=== PATIENT | male | born 1970 | race Caucasian/White ===

== ENCOUNTER 2018-03-10 14:44 | Emergency (ER) | payer SELFPAY ==
[~2018-03-10] VITALS: Ht 175.3 cm; Wt 140.9 kg
[2018-03-10 15:37] VITALS: Ht 175.3 cm; Wt 140.9 kg
[2018-03-10] MEDS ORDERED: ZYLOPRIM300 MG PO (15:39)
[2018-03-10] MEDS ORDERED: ENTRESTO 24 MG1 EACH PO (15:39)
[2018-03-10] MEDS ORDERED: GLUCOPHAGE500 MG PO (15:39)
[2018-03-10] MEDS ORDERED: NOVOLOG100 U/M1 SC (15:40)
[2018-03-10] MEDS ORDERED: LASIX40 MG PO (15:40)
[2018-03-10] MEDS ORDERED: NEURONTIN 300300 MG PO (15:40)
[2018-03-10] MEDS ORDERED: LANTUS INSULIN10 ML SC (15:41)
[2018-03-10] MEDS ORDERED: COREG12.5 MG PO (15:42)
[2018-03-10] MEDS ORDERED: TORADOL10 MG PO (19:52)
[2018-03-10 20:04] VITALS: BP 135/85
== END 2018-03-10 20:05 | disposition home or self-care (01) ==
LOC: D.ER 14:44
DX: R07.81 Pleurodynia (principal); E11.9 Type 2 diabetes mellitus without complications; I10 Essential (primary) hypertension; I50.9 Heart failure, unspecified

== ENCOUNTER 2020-12-24 07:16 | Day surgery (SDC) | payer OTHER ==
--- NOTE | 2020-12-23 13:25 | NUR ---
CONFIRMED PT APPT FOR 12/24/20 PT VERBALIZED UNDERSTANDING OF NPO AFTER MIDNIGHT, ONLY SIP OF WATER WITH MORNING MEDS PT CONFIRMED LICENSED MORTICIAN PT CONFIRMED ASA NOT TAKEN IN 5 DAYS PT CONFIRMED ARRIVAL TIME OF 0730
[~2020-12-24] VITALS: Ht 177.8 cm; Wt 129.1 kg
[~2020-12-24 07:16] MED LIST: COREG12.5 MG PO; ENTRESTO 24 MG1 EACH PO; GLUCOPHAGE500 MG PO; LANTUS INSULIN10 ML SC; LASIX40 MG PO; NEURONTIN 300300 MG PO; NOVOLOG100 U/M1 SC; TORADOL10 MG PO; ZYLOPRIM300 MG PO
[2020-12-24] MEDS ORDERED: BAYER CHEWABLE81 MG (08:11)
[2020-12-24] MEDS ORDERED: BETAPACE 80 MG80 MG (08:13)
[2020-12-24] MEDS ORDERED: LOPRESSOR25 MG (08:14)
[2020-12-24] MEDS ORDERED: ALDACTONE25 MG (08:15)
[2020-12-24] MEDS ORDERED: PROTONIX40 MG PO (08:15)
[2020-12-24] MEDS ORDERED: VITAMIN D-40010 MCG (08:16)
[2020-12-24] MEDS ORDERED: FOLIC ACID1 MG (08:17)
[2020-12-24] MEDS ORDERED: CLARITHROMYCIN500 M1 (08:18)
[2020-12-24 08:20] VITALS: BP 166/83; Ht 177.8 cm; Wt 129.1 kg
[2020-12-24 08:20] LABS: APTT 29.4 SECONDS (22.8-39.4); INR 1.2 (0.85-1.17); PROTIME 14.1 SECONDS (11.6-15.0)
[2020-12-24 08:23] LABS: CARBON DIOXIDE 32.3 mmol/L (21.0-32.0); CREATININE - SERUM 2.8 mg/dL (0.6-1.3)
[2020-12-24 08:33] LABS: ANION GAP 8.5 mmol/L (8-16); POTASSIUM - SERUM 2.8 mmol/L (3.5-5.1)
[2020-12-24 08:49] LABS: HEMATOCRIT 34.8 % (42.0-54.0); LYMPHOCYTE ABS# 0.77 10x3/uL (1.32-3.57); MCH 25.5 pg (26.0-34.0); MCHC 31.6 g/dL (31.0-37.0); MCV 80.6 fL (80.0-100.0); MEAN PLATELET VOLUME 12.1 fL (7.4-10.4); PLATELET COUNT 178 10x3/uL (130-400); RBC 4.32 10x6/uL (4.20-6.10); RDW 15.9 % (11.5-14.5); WBC 5.7 10x3/uL (4.8-10.8)
--- NOTE | 2020-12-24 13:18 | NUR ---
1315 ADA FINGER FOOD DIET SERVED. AT SIDE.
[2020-12-24 13:30] LABS: EOSINOPHILS 4 % (0-7); LYMPHOCYTES 21 % (15-50); MONOCYTES 13 % (2-11); NEUTROPHILS 62 % (40-80); PLATELET ESTIMATE NORMAL
== END 2020-12-24 15:35 | disposition home or self-care (01) ==
LOC: D.CT 07:16
PROVIDERS: General Practice; ATTEND Internal Medicine Medical Oncology
DX: E83.52 Hypercalcemia (principal); R16.1 Splenomegaly, not elsewhere classified; R59.0 Localized enlarged lymph nodes